=== PATIENT | male | born 1995 | race Two or more races ===

== ENCOUNTER 2016-11-02 20:03 | Emergency (ER) | payer MEDICAID, OTHER ==
--- NOTE | 2016-11-02 20:11 | EDM.PDOC ---
ED HPI GENERAL MEDICAL PROBLEM - General Chief Complaint: Back Pain or Injury Stated Complaint: FALL/BACK PAIN Time Seen by Provider: 11/02/16 20:09 Source of Information: Reports: Patient History Limitations: Reports: No Limitations - History of Present Illness INITIAL COMMENTS - FREE TEXT/NARRATIVE: HISTORY AND PHYSICAL: History of present illness: Patient is a 21-year-old male that presents to the emergency room with complaints of low back pain after falling. Patient reports he was walking downstairs missed the last step and fell. States he did not hit his head and had no loss of consciousness. Patient is currently incarcerated and is accompanied by law enforcement. Review of systems: As per history of present illness and below otherwise all systems reviewed and negative. Past medical history: As per history of present illness and as reviewed below otherwise noncontributory. Surgical history: As per history of present illness and as reviewed below otherwise noncontributory. Social history: No reported history of drug or alcohol abuse. Family history: As per history of present illness and as reviewed below otherwise noncontributory. Physical exam: HEENT: Atraumatic, normocephalic, pupils reactive, negative for conjunctival pallor or scleral icterus, mucous membranes moist, throat clear, neck supple, nontender, trachea midline. Lungs: Clear to auscultation, breath sounds equal bilaterally, chest nontender. Heart: S1S2, regular, negative for clicks, rubs, or JVD. Abdomen: Soft, nondistended, nontender. Negative for masses or hepatosplenomegaly. Negative for costovertebral tenderness. Pelvis: Stable nontender. Genitourinary: Deferred. Rectal: Deferred. Extremities: Atraumatic, negative for cords or calf pain. Neurovascular unremarkable. Neuro: Awake, alert, oriented. Cranial nerves II through XII unremarkable. Cerebellum unremarkable. Motor and sensory unremarkable throughout. Exam nonfocal. Diagnostics: [] Therapeutics: [] Impression: [] Definitive disposition and diagnosis as appropriate pending reevaluation and review of above. Lower Back Pain Score (Numeric/FACES): 6 - Related Data Allergies Allergy/AdvReac Type Severity Reaction Status Date / Time No Known Allergies Allergy Verified 01/28/14 10:46 Home Meds: Home Meds . [No Known Home Meds] 01/28/14 [History] Past Medical History - Past Health History Medical/Surgical History: Denies Medical/Surgical History Social & Family History - Tobacco Use Smoking Status *Q: Never Smoker Second Hand Smoke Exposure: No - Alcohol Use Days Per Week of Alcohol Use: 0 - Recreational Drug Use Recreational Drug Use: No ED ROS GENERAL - Review of Systems Review Of Systems: ROS reveals no pertinent complaints other than HPI. ED EXAM,LOWER BACK PAIN/INJURY - Physical Exam Exam: See Below (See dictation) Course - Vital Signs Last Recorded V/S: Last Vital Signs Temp 36.9 C 11/02/16 20:06 Pulse 71 11/02/16 20:06 Resp 18 11/02/16 20:06 BP 110/72 11/02/16 20:06 Pulse Ox 98 11/02/16 20:06 - Orders/Labs/Meds Orders: Active Orders 24 hr Category Date Time Status Cervical Spine 2V or 3V [CR] Stat Exams 11/02/16 20:11 Taken Chest 2V [CR] Stat Exams 11/02/16 20:11 Taken Lumbar Spine 2 or 3V [CR] Stat Exams 11/02/16 20:11 Taken Shoulder 1V Lt [CR] Stat Exams 11/02/16 20:37 Taken Thoracic Spine 2V [CR] Stat Exams 11/02/16 20:11 Taken Labs: Laboratory Tests 11/02/16 Range/Units 21:05 Urine Color YELLOW Urine Appearance CLEAR Urine pH 6.5 (5.0-8.0) Ur Specific [place] 1.010 (1.001-1.035) Urine Protein NEGATIVE (NEGATIVE) mg/dL Urine Glucose (UA) NEGATIVE (NEGATIVE) mg/dL Urine Ketones NEGATIVE (NEGATIVE) mg/dL Urine Occult Blood NEGATIVE (NEGATIVE) Urine Nitrite NEGATIVE (NEGATIVE) Urine Bilirubin NEGATIVE (NEGATIVE) Urine Urobilinogen 0.2 (<2.0) EU/dL Ur Leukocyte Esterase NEGATIVE (NEGATIVE) Urine RBC 0-1 (0-2/HPF) Urine WBC 0-1 (0-5/HPF) Ur Epithelial Cells RARE (NONE-FEW) Urine Bacteria RARE (NEGATIVE) Departure - Departure Time of Disposition: 21:56 Disposition: Home, Self-Care 01 Condition: Good Clinical Impression: Contusion, Fall - Discharge Information Forms: ED Department Discharge Additional Instructions: The following information is given to patients seen in the emergency department who are being discharged to home. This information is to outline your options for follow-up care. We provide all patients seen in our emergency department with a follow-up referral. The need for follow-up, as well as the timing and circumstances, are variable depending upon the specifics of your emergency department visit. If you don't have a primary care physician on staff, we will provide you with a referral. We always advise you to contact your personal physician following an emergency department visit to inform them of the circumstance of the visit and for follow-up with them and/or the need for any referrals to a consulting specialist. The emergency department will also refer you to a specialist when appropriate. This referral assures that you have the opportunity for followup care with a specialist. All of these measure are taken in an effort to provide you with optimal care, which includes your followup. Under all circumstances we always encourage you to contact your private physician who remains a resource for coordinating your care. When calling for followup care, please make the office aware that this follow-up is from your recent emergency room visit. If for any reason you are refused follow-up, please contact the [facility] emergency department at and asked to speak to the emergency department charge nurse. Follow-up primary medical doctor 1-2 days return as needed as discussed Tylenol as directed - My Orders Last 24 Hours: My Active Orders 11/02/16 20:11 Cervical Spine 2V or 3V [CR] Stat Chest 2V [CR] Stat Lumbar Spine 2 or 3V [CR] Stat Thoracic Spine 2V [CR] Stat 11/02/16 20:37 Shoulder 1V Lt [CR] Stat - Assessment/Plan Last 24 Hours: My Active Orders 11/02/16 20:11 Cervical Spine 2V or 3V [CR] Stat Chest 2V [CR] Stat Lumbar Spine 2 or 3V [CR] Stat Thoracic Spine 2V [CR] Stat 11/02/16 20:37 Shoulder 1V Lt [CR] Stat
[2016-11-02 22:28] VITALS: BP 113/68
--- NOTE | 2016-11-03 13:47 | CR ---
EXAM DATE: 11/02/16 PATIENT'S AGE: 21 Patient: JOSE A AUGUSTIN Facility: [place], [place] Site . Site : 1995 Study: XRay Chest [id number]/29/2017 9:30:58 PM Ordering Physician: Ktahy Tobar Final Report: INDICATION: Fall. TECHNIQUE: AP and lateral views of the chest. COMPARISON: None. FINDINGS: Cardiac, mediastinal and hilar contours are normal. Normal pulmonary vasculature. Lungs are clear. No pleural fluid or pneumothorax. No acute bony abnormality. IMPRESSION: No signs of an acute traumatic thoracic injury. Dictated by Roman Box MD @ 11/02/2016 9:50:02 PM Dictated by: Roman Box MD @ 11/02/2016 21:50:06 (Electronic Signature) Report Signed by Proxy. [facility]
--- NOTE | 2016-11-03 13:48 | CR ---
EXAM DATE: 11/02/16 PATIENT'S AGE: 21 Patient: JOSE A AUGUSTIN Facility: [place], [place] Site . Site : 1995 Study: XRay Spine Cervical [id number]/29/2017 9:31:15 PM Ordering Physician: Kathy Tobar Final Report: INDICATION: Fall. TECHNIQUE: Three views of the cervical spine. COMPARISON: None. IMPRESSION: There is no appreciable abnormal prevertebral soft tissue swelling. The curvature and alignment of the cervical spine are normal. No fracture is identified. The intervertebral disc spaces and facet joints appear unremarkable. Dictated by Roman Box MD @ 11/02/2016 9:51:21 PM Dictated by: Roman Box MD @ 11/02/2016 21:51:29 (Electronic Signature) Report Signed by Proxy. [facility]
--- NOTE | 2016-11-03 13:49 | CR ---
EXAM DATE: 11/02/16 PATIENT'S AGE: 21 Patient: JOSE A AUGUSTIN Facility: [place], [place] Site . Site : 1995 Study: XRay Spine Thoracic [id number]/29/2017 9:31:34 PM Ordering Physician: Kathy Tobar Final Report: INDICATION: Trauma. TECHNIQUE: Three views of the thoracic spine. COMPARISON: None. IMPRESSION: Normal curvature and alignment of the thoracic spine. No compression fracture is identified. The intervertebral disc spaces are well maintained. Dictated by Roman Box MD @ 11/02/2016 9:52:30 PM Dictated by: Roman Box MD @ 11/02/2016 21:52:38 (Electronic Signature) Report Signed by Proxy. [facility]
--- NOTE | 2016-11-03 13:50 | CR ---
EXAM DATE: 11/02/16 PATIENT'S AGE: 21 Patient: JOSE A AUGUSTIN Facility: [place], [place] Site . Site : 1995 Study: XRay Spine Lumbar [id number]/29/2017 9:31:53 PM Ordering Physician: Kathy Tobar Final Report: INDICATION: Trauma. TECHNIQUE: Three views of the lumbar spine. COMPARISON: None. IMPRESSION: Normal curvature and alignment of the lumbar spine. No compression fracture. Intervertebral disc spaces and facet joints are well maintained. Dictated by Roman Box MD @ 11/02/2016 9:53:45 PM Dictated by: Roman Box MD @ 11/02/2016 21:53:51 (Electronic Signature) Report Signed by Proxy. [facility]
--- NOTE | 2016-11-03 13:51 | CR ---
EXAM DATE: 11/02/16 PATIENT'S AGE: 21 Patient: JOSE A AUGUSTIN Facility: [place], [place] Site . Site : 1995 Study: XRay Shoulder [id number]/29/2017 9:32:09 PM Ordering Physician: Kathy Tobar Final Report: INDICATION: Fall. TECHNIQUE: Single AP supine view of the left shoulder. COMPARISON: None. IMPRESSION: Limited study due to only one view. There is no appreciable fracture. The glenohumeral and acromioclavicular joints appear normally aligned. Dictated by Roman Box MD @ 11/02/2016 9:55:09 PM Dictated by: Roman Box MD @ 11/02/2016 21:55:13 (Electronic Signature) Report Signed by Proxy. [facility]
== END 2016-11-02 22:25 | disposition home or self-care (01) ==
LOC: MW.ED 20:03
DX: S30.0XXA Contusion of lower back and pelvis, initial encounter (principal); W10.8XXA Fall (on) (from) other stairs and steps, initial encounter
CPT/HCPCS: 71020; 71020-26; 72040; 72040-26; 72070; 72070-26; 72100; 72100-26; 73020-26-LT; 73020-LT; 81001; 99283; 99284

== ENCOUNTER 2017-10-28 01:50 | Emergency (ER) | payer MEDICAID ==
[2017-10-28 01:56] VITALS: BP 131/69
--- NOTE | 2017-10-28 02:03 | EDM.PDOC ---
ED HPI GENERAL MEDICAL PROBLEM - General Chief Complaint: General Stated Complaint: RIGHT SHOULDER PAIN Time Seen by Provider: 10/28/17 02:00 - History of Present Illness INITIAL COMMENTS - FREE TEXT/NARRATIVE: HISTORY AND PHYSICAL: History of present illness: Patient is a 22-year-old white male presents with a concern of shoulder pain and requests referral to orthopedic surgery he declines any diagnostics Review of systems: As per history of present illness and below otherwise all systems reviewed and negative. Past medical history: As per history of present illness and as reviewed below otherwise noncontributory. Surgical history: As per history of present illness and as reviewed below otherwise noncontributory. Social history: No reported history of drug or alcohol abuse. Family history: As per history of present illness and as reviewed below otherwise noncontributory. Physical exam: HEENT: Atraumatic, normocephalic, pupils reactive, negative for conjunctival pallor or scleral icterus, mucous membranes moist, throat clear, neck supple, nontender, trachea midline. Lungs: Clear to auscultation, breath sounds equal bilaterally, chest nontender. Heart: S1S2, regular, negative for clicks, rubs, or JVD. Abdomen: Soft, nondistended, nontender. Negative for masses or hepatosplenomegaly. Negative for costovertebral tenderness. Pelvis: Stable nontender. Genitourinary: Deferred. Rectal: Deferred. Extremities: Atraumatic, negative for cords or calf pain. Neurovascular unremarkable. Left shoulder full range of motion deformity crepitation or other skin findings Neuro: Awake, alert, oriented. Cranial nerves II through XII unremarkable. Cerebellum unremarkable. Motor and sensory unremarkable throughout. Exam nonfocal. Diagnostics: Deferred Therapeutics: Deferred Impression: #1 left shoulder pain #2 medical screening exam Definitive disposition and diagnosis as appropriate pending reevaluation and review of above. left shoulder Pain Score (Numeric/FACES): 6 - Related Data Allergies Allergy/AdvReac Type Severity Reaction Status Date / Time No Known Allergies Allergy Verified 10/28/17 01:56 Home Meds: Home Meds . [No Known Home Meds] 01/28/14 [History] Past Medical History - Past Health History Medical/Surgical History: Denies Medical/Surgical History Musculoskeletal History: Reports: Other (See Below) Other Musculoskeletal History: popped left shoulder before - Past Surgical History Musculoskeletal Surgical History: Reports: None Social & Family History - Family History Family Medical History: Noncontributory - Tobacco Use Smoking Status *Q: Current Every Day Smoker Years of Tobacco use: 1 Packs/Tins Daily: 1 - Caffeine Use Caffeine Use: Reports: None - Recreational Drug Use Recreational Drug Use: No ED ROS GENERAL - Review of Systems Review Of Systems: ROS reveals no pertinent complaints other than HPI. ED EXAM, GENERAL - Physical Exam Exam: See Below (See dictation) Course - Vital Signs Last Recorded V/S: Last Vital Signs Temp 36.1 C 10/28/17 01:53 Pulse 76 10/28/17 01:53 Resp 17 10/28/17 01:53 BP 131/69 10/28/17 01:53 Pulse Ox 100 10/28/17 01:53 Departure - Departure Time of Disposition: 02:02 Disposition: Home, Self-Care 01 Condition: Good Clinical Impression: Shoulder pain, Encounter for medical screening examination - Discharge Information *PRESCRIPTION DRUG MONITORING PROGRAM REVIEWED*: Not Applicable *COPY OF PRESCRIPTION DRUG MONITORING REPORT IN PATIENT CHARLENE: Not Applicable Additional Instructions: The following information is given to patients seen in the emergency department who are being discharged to home. This information is to outline your options for follow-up care. We provide all patients seen in our emergency department with a follow-up referral. The need for follow-up, as well as the timing and circumstances, are variable depending upon the specifics of your emergency department visit. If you don't have a primary care physician on staff, we will provide you with a referral. We always advise you to contact your personal physician following an emergency department visit to inform them of the circumstance of the visit and for follow-up with them and/or the need for any referrals to a consulting specialist. The emergency department will also refer you to a specialist when appropriate. This referral assures that you have the opportunity for followup care with a specialist. All of these measure are taken in an effort to provide you with optimal care, which includes your followup. Under all circumstances we always encourage you to contact your private physician who remains a resource for coordinating your care. When calling for followup care, please make the office aware that this follow-up is from your recent emergency room visit. If for any reason you are refused follow-up, please contact the [facility] emergency department at and asked to speak to the emergency department charge nurse. [facility] [place] [facility] Professional [address], [address] [place] [address] Follow-up orthopedic clinic call to schedule routine appointment Motrin/Tylenol as directed return as needed as discussed
== END 2017-10-28 02:15 | disposition home or self-care (01) ==
LOC: MW.ED 01:50
DX: M25.512 Pain in left shoulder (principal); F17.210 Nicotine dependence, cigarettes, uncomplicated
CPT/HCPCS: 99282; 99283